=== PATIENT | female | born 1965 | race Two or more races ===

== ENCOUNTER 2017-11-25 13:46 | Outpatient (CLI) | payer OTHER ==
[~2017-11-25 13:46] MED LIST: CEFTIN500 MG PO; ZANTAC300 MG PO
== END 2017-11-25 13:53 | disposition home or self-care (01) ==
LOC: MAMO-SONO 13:46
DX: Z12.31 Encounter for screening mammogram for malignant neoplasm of breast (principal); N63.10 Unspecified lump in the right breast, unspecified quadrant; N63.20 Unspecified lump in the left breast, unspecified quadrant

== ENCOUNTER 2018-02-24 11:08 | Outpatient (CLI) | payer OTHER | END 2018-02-24 18:25 | disposition home or self-care (01) | LOC: RAD 501 11:08 | DX: S90.111A Contusion of right great toe without damage to nail, initial encounter (principal) ==

== ENCOUNTER 2018-03-02 14:39 | Outpatient (CLI) | payer OTHER | END 2018-03-02 14:58 | disposition home or self-care (01) | LOC: NUCLEAR 14:39 | DX: M81.0 Age-related osteoporosis without current pathological fracture (principal) ==

== ENCOUNTER 2019-04-05 13:15 | Outpatient (CLI) | payer OTHER | END 2019-04-05 13:25 | disposition home or self-care (01) | LOC: MAMO-SONO 13:15 | DX: Z12.31 Encounter for screening mammogram for malignant neoplasm of breast (principal); Z87.898 Personal history of other specified conditions; N63.10 Unspecified lump in the right breast, unspecified quadrant; N63.20 Unspecified lump in the left breast, unspecified quadrant ==

== ENCOUNTER 2020-08-12 13:35 | Outpatient (CLI) | payer OTHER | END 2020-08-12 13:41 | disposition home or self-care (01) | LOC: MAMO-SONO 13:35 | DX: Z12.31 Encounter for screening mammogram for malignant neoplasm of breast (principal) ==

== ENCOUNTER 2022-05-28 13:23 | Outpatient (CLI) | payer OTHER | END 2022-05-28 13:38 | disposition home or self-care (01) | LOC: MAMO-SONO 13:23 | PROVIDERS: ATTEND Internal Medicine Gastroenterology | DX: Z12.31 Encounter for screening mammogram for malignant neoplasm of breast (principal) ==

== ENCOUNTER 2022-07-02 13:14 | Outpatient (CLI) | payer OTHER | END 2022-07-02 13:41 | disposition home or self-care (01) | LOC: SONOGRAMA 13:14 | DX: N63.10 Unspecified lump in the right breast, unspecified quadrant (principal); N63.20 Unspecified lump in the left breast, unspecified quadrant ==

== ENCOUNTER 2023-12-27 09:38 | Outpatient (CLI) | payer OTHER | END 2023-12-27 09:51 | disposition home or self-care (01) | LOC: MAMO-SONO 09:38 | PROVIDERS: ATTEND Internal Medicine | DX: Z12.31 Encounter for screening mammogram for malignant neoplasm of breast (principal) ==